=== PATIENT | male | born 2000 | race Caucasian/White ===

== ENCOUNTER 2021-07-27 07:52 | Emergency (ER) | payer OTHER, SELFPAY ==
[2021-07-27 07:52] VITALS: BP 163/94; PULSE 90; RESP 16; TEMP 36; O2SAT 100; BMI 23.5
--- NOTE | 2021-07-27 08:12 | US_ITS ---
STUDY: SCROTUM ULTRASOUND REASON FOR EXAM: Male, 20 years old. 2 day history of right testicular pain. TECHNIQUE: Ultrasound evaluation of the scrotum was performed with color Doppler and static perez-scale imaging. COMPARISON: None. FINDINGS: RIGHT TESTICLE INTRATESTICULAR: There is a normal size of the right testicle. The right testicle measures 4.5 cm x 3 cm x 2.3 cm. There is a homogenous echotexture. There is normal arterial and normal venous vascularity. There is no demonstrated right testicular mass or cyst. EXTRATESTICULAR: The epididymis is normal in size. The epididymis head measures 1 cm x 1.3 cm x 1.2 cm. There is normal vascularity of the epididymis. There is no demonstrated epididymal cystic structure. There is no demonstrated hydrocele. There is no demonstrated varicocele. There is no demonstrated extratesticular mass or cyst. LEFT TESTICLE INTRATESTICULAR: There is a normal size of the left testicle. The left testicle measures 4.5 cm x 2.8 sided by 2.1 cm. There is a homogenous echotexture. There is normal arterial and normal venous vascularity. There is no demonstrated left testicular mass or cyst. EXTRATESTICULAR: The epididymis is normal in size. The epididymis head measures 0.7 cm x 0.9 cm x 0.9 cm. There is normal vascularity of the epididymis. There is no demonstrated epididymal cystic structure. There is no demonstrated hydrocele. There is no demonstrated varicocele. There is no demonstrated extratesticular mass or cyst. US/Testicular with Arterial Flow IMPRESSION: Normal bilateral testicles. Electronically Signed: Adolph Dillon MD at 10:08 EDT , Service support ,
--- NOTE | 2021-07-27 08:13 | EDS_ITS ---
HPI History of Present Illness Chief Complaint: Male Pain/Injury Informant: patient Pain Onset: Days (2) Context: Gradual Onset Timing: Continuous Current Severity: Moderate Maximum Severity: Moderate Worsened by: scrotal support Relieved by: wearing boxers Penile Discharge Genital Discharge Amount: None Related History Sexually: Inactive STD: No Narrative Narrative: Gradual onset right testicular pain. No swelling or redness. No trouble urinating or urethral discharge. Currently not sexually active. Denies any injury. Pain does not radiate and there is nothing on the left side, no penile pain. Denies any rashes. No history of STDs. PFSH PFSH Medical History no medical history no medical history Home Medications doxycycline monohydrate 100 mg PO BID #20 capsule 07/27/21 [Rx Last Taken Unknown] Allergy/AdvReac Type Severity Reaction Status Date / Time No Known Allergies Allergy Verified 07/27/21 07:54 Surgical History no surgical history no surgical history Social History Smoking Status: Never smoker ROS ROS ED Constitutional Constitutional ED: Denies chills or fever(s) Eyes Eyes: Denies change in vision or diplopia ENT ENT ED: Denies rhinorrhea or sore throat Cardiovascular Cardiovascular: Denies chest pain or palpitations Respiratory/Chest Respiratory/Chest: Denies cough or dyspnea Gastrointestinal Gastrointestinal: Denies abdominal pain, diarrhea, nausea or vomiting Genitourinary Genitourinary ED: Reports as per HPI and scrotal pain; Denies dysuria, flank pain, hematuria, scrotal swelling or testicular swelling Musculoskeletal Musculoskeletal: Denies back pain or neck pain Integumentary Denies abscess or rash Neurologic Neurologic: Denies headache(s), paresthesias or weakness Psychiatric Psychiatric: Denies anxiety or suicidal thoughts EXAM Physical Exam Const Vital Signs: 07/27/21 07:52 Temperature 96.8 F L Temperature Source Temporal Pulse Rate 90 Respiratory Rate 16 Blood Pressure 163/94 H Blood Pressure Mean 117 Pulse Ox 100 Oxygen Delivery Method Room Air Positive well nourished and well developed General Appearance ED: well developed and NAD HEENT normocephalic and atraumatic Eyes PERRL and EOMs intact bilaterally Neck full ROM and supple Resp normal respiratory effort GI non-tender and non-distended Auscultation: normoactive bowel sounds Palpation: soft Narrative: Scrotum, penis normal on inspection. Uncircumcised. No palpable masses. Cremasterics intact. No blue dot sign. Area of tenderness on the right testicle is on top near insertion of the vas deferens/vasculature. Posteriorly he is not tender although the patient initially indicated the back of the testicle hurts. No abnormal testicular lie. Testes: Negative for testicular swelling Neuro oriented x3, CN's II-XII intact bilaterally and no sensory deficits noted Sensorium / Orientation: awake and alert Motor Exam: strength 5/5 throughout Skin no rashes or lesions noted and no wounds MDM MDM MDM Narrative Medical decision making narrative: I suspect the patient has epididymitis that would be more likely caused by E. coli in this patient, however there are features of the history and exam that are inconsistent with it so an ultrasound was obtained and the patient was amenable to that. It was unremarkable. I will treat him for possible early epididymitis, I am not concerned about anything dangerous at this time. Discussed outpatient follow-up with urology if he is no better in a week. Lab Data Attestation: I reviewed the patient's lab results. Labs: Laboratory Results - last 24 hr 07/27/21 08:41 Urine Color Yellow Urine Clarity Clear Urine pH 5.0 Ur Specific [place] 1.025 Urine Protein 15 H Urine Glucose (UA) Normal Urine Ketones Negative Urine Occult Blood Negative Urine Nitrite Negative Urine Bilirubin Negative Urine Urobilinogen Normal Ur Leukocyte Esterase Negative Urine RBC 0 SEEN Urine WBC 0 SEEN Ur Squamous Epith Cells 0 SEEN Urine Bacteria 0 SEEN Urine Mucus 0 SEEN Radiography Diagnostic Testing: Clinical Impression(s) from Imaging Studies Testicular Ultrasound 07/27/21 08:12 IMPRESSION: Normal bilateral testicles. Electronically Signed: Adolph Dillon MD at 10:08 EDT , Service support , Discharge Plan Triage Chief Complaint: Male Pain/Injury ED Provider: Tiago England Dx/Rx/DC Orders Clinical Impression: Epididymitis, right Instructions: ED Epididymitis Prescriptions: New doxycycline monohydrate 100 MG capsule 100 mg PO BID Qty: 20 RF: 0 Primary Care Provider: Care Physician,No Primary Referrals: Valeriano Ely MD [STAFF PHYSICIAN] - 1 Week if not improving Care Physician,No Primary [Primary Care Provider] - Disposition Disposition: Home, Self Care
[2021-07-27 08:48] LABS: Bacteria 0 SEEN /hpf (None Seen); Mucous, Urine 0 SEEN /hpf (<or=2+); Red Blood Cells-Urine 0 SEEN /hpf (0-5); Squamous Epithelial Cells - UA 0 SEEN /hpf (0-5); White Blood Cells 0 SEEN /hpf (0-5)
[2021-07-27 08:53] LABS: Color, Urine Yellow (Yellow); Glucose, Dipstick Normal (Normal); Ketone-Dipstick Negative (Negative); Leukocyte Esterase-Dipstick Negative /ul (Negative); Nitrite-Dipstick Negative (Negative); Occult Blood-Urine Negative /ul (Negative); Protein-Dipstick 15 mg/dl (Negative); Specific Gravity, Urine 1.025 (1.002-1.030); Urine Bilirubin Dipstick Negative (Negative); Urine Clarity Clear (Clear); Urine Urobilinogen Normal (Normal)
[2021-07-27 11:32] VITALS: BP 123/71
== END 2021-07-27 11:32 | disposition home or self-care (01) ==
PROVIDERS: Emergency Provider Emergency Medicine
DX: N45.1 Epididymitis (principal)
CPT/HCPCS: 76870; 81001; 93976; 99282